=== PATIENT | female | born 1945 | race Caucasian/White ===

== ENCOUNTER 2019-12-04 20:05 | Emergency (ER) | payer OTHER, SELFPAY ==
--- NOTE | ~2019-12-04 | US_ITS ---
EXAMINATION: US pelvic complete w TV DATE: 12/05/2019 00:46 INDICATION: Left adnexal pain/mass TECHNIQUE: Multiple transabdominal and endovaginal sonographic images of the pelvis were obtained. COMPARISON: CT, 12/04/2019 FINDINGS: The uterus measures 9.1 x 4.5 x 3.5 cm. The endometrial complex measures 9 mm. Again seen i s a 10.7 x 7.3 x 6.5 cm mass of the left adnexa. The mass demonstrates internal vascularity. The left ovary is not visualized however no left adnexal abnormality is seen. The right ovary measures 1.7 x 1.4 x 1.8 cm. There is normal vascular flow in the right ovary. There is no free fluid in the pelvis. IMPRESSION: 1. 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 2. Mild thickening of the endometrial stripe which is of unclear significance in an asymptomatic post menopausal female. Reviewed, dictated and finalized at location A. IMPRESSION: 1. 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 2. Mild thickening of the endometrial stripe which is of unclear significance i n an asymptomatic postmenopausal female.
--- NOTE | ~2019-12-04 | CT_ITS ---
EXAMINATION: CT abdomen pelvis w con INDICATION: Left lower quadrant pain TECHNIQUE: Computed tomographic images of the abdomen and pelvis were obtained after the administrati on of 100 cc of Omnipaque 350 intravenous contrast. The dose-length product (DLP) was 817.95 mGy-cm. Automated exposure control and iterative reconstruction technique were employed. COMPARISON: None available FINDINGS: There is a large hiatal hernia with organoaxial volvulus. Much of the stomach is in the tho rax. The heart size is normal. The liver, spleen, pancreas, and adrenal glands are normal. A stone is present in the nondistended gallbladder. Cysts of the kidneys measure up to 2.7 cm on the right. 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 Colonic diverticulosis is present without evidence of diverticulitis. There is a 10 .8 x 7.1 cm mass of the left pelvis which appears to arise from the left adnexa. The mass causes ante rior displacement of the uterus and displaces the rectosigmoid colon to the right. There is a trace a mount of perisplenic ascites. There is severe lumbar spondylosis. IMPRESSION: 1. Left pelvic mass measuring up to 10.8 cm which appears to arise from the left adnexa. Surgical con sultation is recommended. Reviewed, dictated and finalized at location A. IMPRESSION: 1. Left pelvic mass measuring up to 10.8 cm which appears to arise from the lef t adnexa. Surgical consultation is recommended.
[2019-12-04 20:09] VITALS: BP 137/80; PULSE 93; RESP 20; TEMP 37.3; O2SAT 95
[2019-12-04] MEDS: MORPHINE SULFATE 4 MG/ML INJ IV PUSH (21:25)
[2019-12-04 21:48] LABS: Basophils Absolute Auto 0.1 K/mm3 (0.0-0.1); Basophils Percent Auto 0.8 % (0.2-1.2); Eosinophils Absolute Auto 0.3 K/mm3 (0-0.3); Eosinophils Percent Auto 4.6 % (0-4.4); Hemoglobin 13.6 g/dL (12.0-15.0); Immature Granulocyte Absolute 0.02 K/mm3 (0.00-0.031); Immature Granulocyte Percent A 0.3 % (0-0.5); Lymphocytes Absolute Auto 1.61 K/mm3 (0.9-3.2); Lymphocytes Percent Auto 24.9 % (18.3-44.2); Mean Corpuscular HGB Conc 33.2 g/dl (32-36); Mean Corpuscular Hemoglobin 31.4 pg (26-34); Mean Corpuscular Volume 94.7 fl (80-100); Mean Platelet Volume 10.9 fl (7.4-10.4); Monocytes Absolute Auto 0.5 K/mm3 (0.1-0.6); Monocytes Percent Auto 7.4 % (2.6-8.5); Platelet Count Result 236 k/mm3 (150-375); Red Blood Count 4.33 M/mm3 (4.2-5.4); Red Cell Distribution Width 13.1 % (11.5-14.5); White Blood Count 6.5 K/mm3 (4.5-10.0)
[2019-12-04 21:50] LABS: Add Urine Microscopic? NO; Appearance Urine Clear (Clear); Bilirubin Urine Negative (Negative); Blood Urine Negative (Negative); Color Urine Yellow (Yellow); Glucose Urine UA Negative (Negative); Ketones Urine Negative (Negative); Leukocyte Esterase Ur Negative LEU/UL (Negative); Nitrate Urine Negative (Negative); Protein Urine Negative (Negative); Specific Grav Ur 1.016 (1.001-1.035); Urobilinogen Urine Negative mg/dL (<2.0)
[2019-12-04 22:00] LABS: Blood Urea Nitrogen 18 mg/dL (7-17); Calcium 9.1 mg/dL (8.4-10.2); Carbon Dioxide 31 mmol/L (22-30); Chloride 99 mmol/L (98-107); Estimated CRCL calculation 59 ml/min; Estimated Glomerular Filt Rate > 60; Glucose 152 mg/dL (65-105); Potassium 3.7 mmol/L (3.4-5.0); Sodium 137 mmol/L (137-145)
--- NOTE | 2019-12-04 22:39 | ED.ABDPAIN ---
HPI - Abdominal Pain General Chief Complaint: Abdominal Pain Stated Complaint: diverticulitus Time Seen by Provider: 12/04/19 20:07 History of Present Illness HPI narrative: Patient is a 76-year-old female who presents ER with sudden onset left-sided abdominal pain. It is in the lower abdomen. Is constant sharp pain. No radiation. Worse with positional change. Has not found alleviating factors. Has history of diverticulitis and this feels similar. Related Data Allergies Allergy/AdvReac Type Severity Reaction Status Date / Time Sulfa (Sulfonamide Allergy Unknown Verified 01/24/17 14:50 Antibiotics) Review of Systems Review of Systems: All systems reviewed & are unremarkable except as noted in HPI and below Constitutional: Constitutional: Denies chills, Denies fever(s) and Denies weakness Respiratory: Respiratory: Denies cough and Denies dyspnea Gastrointestinal: Gastrointestinal: Reports abdominal pain, Denies diarrhea, Denies nausea and Denies vomiting Genitourinary: Genitourinary: Denies nocturia, Denies dysuria and Denies flank pain PMFSH Past Medical History Medical History (Updated 12/05/19 @ 02:19 by Justice Hylton MD) Diverticulitis Glaucoma Hypertension Hypothyroidism Surgical History Surgical History (Updated 12/04/19 @ 22:43 by Justice Hylton MD) H/O colonoscopy Family History Family History (Updated 01/24/17 @ 21:58 by DOCTOR UNKNOWN) Father Malignant neoplasm of prostate Mother Family history of pancreatic cancer Other Carcinoma of colon Family history of malignant neoplasm of gastrointestinal tract Social History Social History Smoking status: Former smoker Smoking end date: 07/22/97 Alcohol intake: never Exam Narrative: Exam Narrative: GENERAL: Well-appearing, well-nourished, and in no acute distress. HEAD: Normocephalic, atraumatic. ENT: Mucous membranes moist. CHEST: Clear to auscultation. No respiratory distress. HEART: Regular rate and rhythm. Normal peripheral pulses. ABDOMEN: Soft, moderate tenderness in left lower quadrant, nondistended. EXTREMITIES: Normal range of motion. No edema. SKIN: Warm, dry, no rash. NEURO: Alert and oriented x3. PSYCH: Normal mood and affect. Course Reevaluation(s) Reevaluation #1: Patient informed of results. Discussed CT findings with Dr. Sanchez. We will obtain ultrasound to rule out torsion on the left side. We will also obtain a Ca1 25. Date: 12/04/19 Time: 23:30 Reevaluation #2: Patient with repeat episode of severe lower abdominal pain. Re-dosing morphine. Dr. Sanchez recommends transfer to [facility] for going on given severe pelvic pain with adnexal mass and thickened endometrial stripe. I have concerns for intermittent torsion. I have spoken with Dr. Gerber who has accepted the patient for transfer. Patient with first episode low blood pressure after repeat dose of morphine and pain. We will give IV fluid and continue to monitor. Date: 12/05/19 Time: 02:18 Vital Signs Vital signs: Vital Signs Temperature 99.1 F 12/04/19 20:09 Pulse Rate 93 12/04/19 20:09 Respiratory Rate 20 12/04/19 20:09 Blood Pressure 137/80 12/04/19 20:09 Pulse Oximetry 95 12/04/19 20:09 Temperature 99.1 F 12/04/19 20:09 Pulse Rate 72 12/05/19 02:00 Respiratory Rate 22 H 12/05/19 02:00 Blood Pressure 95/74 L 12/05/19 02:00 Pulse Oximetry 97 12/05/19 02:00 MDM - Abdominal Pain Lab Data Result diagrams: 12/04/19 21:35 12/04/19 21:35 Labs: Lab Results 12/04/19 12/04/19 12/04/19 Range/Units 21:35 21:35 21:35 WBC 6.5 (4.5-10.0) K/mm3 RBC 4.33 (4.2-5.4) M/mm3 Hgb 13.6 (12.0-15.0) g/dL Hct 41.0 (37.0-47.0) % MCV 94.7 (80-100) fl MCH 31.4 (26-34) pg MCHC 33.2 (32-36) g/dl RDW 13.1 (11.5-14.5) % Plt Count 236 (150-375) k/mm3 MPV 10.9 H (7.4-10.4) fl Immature Gran % (Auto) 0.3 (0-0.5) % Neut % (Auto) 6
[2019-12-04 23:43] VITALS: BP 139/69; PULSE 72; RESP 18; O2SAT 93
[2019-12-05 02:00] VITALS: BP 95/74; PULSE 72; RESP 22; O2SAT 97
[2019-12-05] MEDS: MORPHINE SULFATE 4 MG/ML INJ IV PUSH (02:21)
[2019-12-05] MEDS: ONDANSETRON INJ 4 MG/2 ML VIAL IV PUSH (02:21)
--- NOTE | 2019-12-05 02:39 | PC.NURSE ---
SPoke with nurse Nia from [facility] she called to ask COVID screening questions at [phone].
--- NOTE | 2019-12-05 02:51 | PC.NURSE ---
Pt placed on 2L NC due to oxygen drop to 79%.
[2019-12-05 04:30] VITALS: BP 115/73; PULSE 68; O2SAT 99
[2019-12-05 05:30] VITALS: BP 127/69; PULSE 65; RESP 16; O2SAT 99
--- NOTE | 2019-12-05 06:09 | PC.NURSE ---
Report called and given to SHAHAZD Cuellar at [phone].
--- NOTE | 2019-12-05 06:14 | PC.NURSE ---
Called [facility] to transport patient to [id number]. ETA [phone]
[2019-12-05 06:56] VITALS: BP 127/70; PULSE 62; RESP 16; O2SAT 100
[2019-12-09 00:45] LABS: CA-125 35 U/mL (<35)
== END 2019-12-05 07:00 | disposition short-term general hospital (02) ==
PROVIDERS: Emergency Provider Emergency Medicine; PCP Family Medicine
DX: R10.2 Pelvic and perineal pain (principal); N83.9 Noninflammatory disorder of ovary, fallopian tube and broad ligament, unspecified; H40.9 Unspecified glaucoma; I10 Essential (primary) hypertension; E03.9 Hypothyroidism, unspecified; Z87.891 Personal history of nicotine dependence
CPT/HCPCS: 36415; 74177; 76830; 76856; 80048; 81003; 85025; 86304; 96374; 96375; 96376; 99285; J2270; J2405; Q9967

== ENCOUNTER 2020-03-03 17:31 | Outpatient (CLI) | payer OTHER, SELFPAY ==
--- NOTE | ~2020-03-03 | XR_ITS ---
EXAMINATION: XR ankle RT min 3V EXAM DATE: 03/03/2020 17:56 INDICATION: Initial encounter following injury, with pain of the right ankle. Fell 4 days ago. TECHNIQUE: Right ankle frontal, lateral and oblique projections obtained and reviewed. There is no p rior study for comparison. FINDINGS: The right ankle mortise appears intact. There are no acute fractures or dislocations iden tified. There is no subcutaneous gas. The soft tissue is unremarkable. There are no radiopaque fo reign bodies. IMPRESSION: 1. Unremarkable right ankle exam. Reviewed, dictated and finalized at location G.
== END 2020-03-03 17:32 | disposition home or self-care (01) ==
LOC: ANHIMG 17:34
PROVIDERS: PCP Family Medicine; Visit Provider Family Medicine
DX: S93.439A Sprain of tibiofibular ligament of unspecified ankle, initial encounter (principal); S93.491A Sprain of other ligament of right ankle, initial encounter
CPT/HCPCS: 73610

== ENCOUNTER 2020-10-03 11:31 | Outpatient (CLI) | payer OTHER, MEDICARE, SELFPAY | END 2020-10-03 11:32 | disposition home or self-care (01) | LOC: ANHCOVIDVC 11:31 | PROVIDERS: PCP Family Medicine | DX: Z23 Encounter for immunization (principal) | CPT/HCPCS: 0001A; 91300 ==

== ENCOUNTER 2020-10-24 11:30 | Outpatient (CLI) | payer OTHER, MEDICARE, SELFPAY | END 2020-10-24 11:31 | disposition home or self-care (01) | LOC: ANHCOVIDVC 11:30 | PROVIDERS: PCP Family Medicine | DX: Z23 Encounter for immunization (principal) | CPT/HCPCS: 0002A; 91300 ==

== ENCOUNTER 2020-12-26 15:10 | Outpatient (CLI) | payer OTHER, SELFPAY ==
--- NOTE | ~2020-12-26 | XR_ITS ---
EXAMINATION:XR_CERV2-3V_CR DATE: 12/26/2020 15:40 INDICATION: Mononeuropathy of the bilateral upper limits TECHNIQUE: AP, lateral, lateral swimmers and odontoid views of the cervical spine are provided. COMPARISON: None FINDINGS: 1-2 mm retrolisthesis C4 on C5. Odontoid is intact. Moderate atlantoaxial osteoarthritis.. Vertebral body heights are normal. Moderate disc height loss at C3-C4 and C5-C6, the latter with severe bilater al uncovertebral osteoarthritis. Mild to moderate uncovertebral osteoarthritis at C3-C4 and C4-C5. Mi ld disc height loss at C4-C5. Multilevel moderate cervical facet osteoarthritis. Prevertebral soft ti ssues are normal. Visualized apices of lungs are clear. IMPRESSION: 1. Moderate cervical spondylosis. Reviewed, dictated and finalized at location A.
== END 2020-12-26 15:11 | disposition home or self-care (01) ==
PROVIDERS: PCP Family Medicine; Visit Provider Physician Assistant
DX: G56.93 Unspecified mononeuropathy of bilateral upper limbs (principal); M47.892 Other spondylosis, cervical region
CPT/HCPCS: 72040

== ENCOUNTER 2021-09-29 07:30 | Outpatient (CLI) | payer OTHER, SELFPAY ==
--- NOTE | ~2021-09-29 | XR_ITS ---
EXAMINATION: XR UGIAC w barium swallow DATE: 09/29/2021 08:07 INDICATION: Gastroesophageal reflux disease without esophagitis. TECHNIQUE: The patient drank thick barium, gas-producing crystals, and thin barium. Fluoroscopy of th e esophagus, stomach, and proximal small bowel was performed. Fluoroscopy exposure time was 0.8 minut es. The total number of images was 281. Total dose-area product was 2.526 Gy-cm^2. COMPARISON: CT abdomen and pelvis 12/04/2019 FINDINGS: There is no mass or stricture of the esophagus. Esophageal motility is normal. There is a l arge sliding hiatal hernia with nearly the entire stomach above the diaphragm. There was no gastroeso phageal reflux with provocative maneuvers. The proximal small bowel shows a normal folding pattern. IMPRESSION: 1. Large sliding hiatal hernia. Reviewed, dictated and finalized at location A. TS ATTORNEY
== END 2021-09-29 07:31 | disposition home or self-care (01) ==
PROVIDERS: PCP Internal Medicine; Visit Provider Internal Medicine
DX: K21.9 Gastro-esophageal reflux disease without esophagitis (principal)
CPT/HCPCS: 74246

== ENCOUNTER → 2022-05-02 12:20 | Outpatient (CLI) | payer OTHER, SELFPAY ==
--- NOTE | ~2022-05-02 | DEXA_ITS ---
Bone Density Report Name: MICHELL AVERY Age: 76 Sex: Female Ethnicity: White Date of : 1945 Indication: postmenopausal; screening for osteoporosis; height loss; hysterectomy; Referring Provider: ALPHONSE CAAL Study: Bone densitometry was performed. Exam Date: May 02, 2022 Accession number: [id number] Bone Density: Region BMD T-score Z-score Classification AP Spine (L1-L4) 1.623 5.2 7.6 Normal Femoral Neck (Left) 0.902 0.5 2.5 Normal Total Hip (Left) 1.125 1.5 3.2 Normal Femoral Neck (Right) 0.874 0.2 2.3 Normal Total Hip (Right) 1.112 1.4 3.1 Normal Total Hip Mean 1.119 1.5 3.2 Normal World Health Organization criteria for BMD impression classify patients as: Normal (T-score at or above -1.0), Osteopenia (T-score between -1.0 and -2.5), or Osteoporosis (T-score at or below -2.5). 10-year Fracture Risk: FRAX not reported because: All T-scores for Spine Total, Hip Total, Femoral Neck at or above -1.0 Clinical Information Provided by Patient: Has the following medical conditions: Hysterectomy Patient maximum height was 69 Menopause Age: 50 No regular weight bearing exercise Does not regularly consume dairy products Drinks caffeinated beverages Onset of menses at age 13 Number of children 1 Impression: The patient has normal bone mass. Discussion: LOW RISK OF FRACTURE; BONE DENSITY IS WELL ABOVE THE MINIMUM DESIRABLE LEVEL AND ABOVE AVERAGE FOR AGE AND SEX AT ALL SKELETAL SITES TESTED. This person's bone density is above expected limits for age and sex. This is rarely clinically significant, but should be pursued if there are significant musculoskeletal complaints. The patient should follow a healthful lifestyle (good nutrition with adequate calcium and vitamin D, and appropriate weight-bearing exercise). Follow-Up: Consider repeating this study in 5 years or sooner if there is some new clinical indication. Reported by: ABDULAZIZ on 05/02/2022 12:38:00 PM. Reviewed, dictated and finalized at location AGaudencio GLASS
--- NOTE | ~2022-05-02 | MM_ITS ---
EXAMINATION: MM screening eitan BI w shreyas HISTORY: Screening TECHNIQUE: Craniocaudal and mediolateral oblique 3-D tomosynthesis images were obtained and synthetic 2-D images were generated. CAD analysis was submitted and interpreted. COMPARISON: No prior mammogram is available for comparison at this institution. BREAST PARENCHYMAL COMPOSITION: There are scattered areas of fibroglandular density. FINDINGS: There is no evidence of suspicious mass, calcification, or architectural distortion to sugg est malignancy in either breast. There has been no suspicious interval change. IMPRESSION: 1. No mammographic evidence of malignancy. 2. Recommend routine screening mammography in one year. BI-RADS Category 1: Negative Reviewed, dictated and finalized at location A.
== END ==
PROVIDERS: PCP Internal Medicine; Visit Provider Nurse Practitioner
DX: Z12.31 Encounter for screening mammogram for malignant neoplasm of breast (principal); Z78.0 Asymptomatic menopausal state
CPT/HCPCS: 77063; 77067; 77080

== ENCOUNTER → 2023-04-25 12:41 | Outpatient (CLI) | payer OTHER, SELFPAY ==
--- NOTE | ~2023-04-25 | US_ITS ---
Pelvic ultrasound. Clinical History: Pelvic pain, prior hysterectomy Technique: Realtime transabdominal and transvaginal scanning of the pelvis was performed. Color flow Doppler and Doppler spectral analysis were performed. Findings: The uterus is absent, compatible with hysterectomy. Neither ovary seen. No adnexal mass seen. There is no evidence of free fluid in the cul de sac. Impression: Neither ovary seen. No adnexal mass seen. Status post hysterectomy. Reviewed, dictated and finalized at location . Impression: Neither ovary seen. No adnexal mass seen. Status post hysterectomy.
== END ==
PROVIDERS: PCP Family Medicine Adolescent Medicine; Visit Provider Family Medicine Adolescent Medicine
DX: R10.32 Left lower quadrant pain (principal)
CPT/HCPCS: 76856

== ENCOUNTER → 2023-07-31 12:19 | Outpatient (CLI) | payer OTHER, SELFPAY ==
--- NOTE | ~2023-07-31 | MM_ITS ---
EXAMINATION: MM screening eitan BI w shreyas HISTORY: Screening mammogram, family history of breast cancer in her mother. TECHNIQUE: Craniocaudal and mediolateral oblique 3-D tomosynthesis images were obtained and synthetic 2-D images were generated. CAD analysis was submitted and interpreted. COMPARISON: 05/02/2022 08/06/2017, 191 BREAST PARENCHYMAL COMPOSITION: The breasts are almost entirely fatty. FINDINGS: No suspicious mass, calcification, or architectural distortion are identified in either matt ast to suggest malignancy. There has been no suspicious interval change. IMPRESSION: 1. No mammographic evidence of malignancy. 2. Recommend routine screening mammography in one year. BI-RADS Category 1: Negative Reviewed, dictated and finalized at location A. CHIEF
== END ==
PROVIDERS: PCP Family Medicine Adolescent Medicine; Visit Provider Family Medicine Adolescent Medicine
DX: Z12.31 Encounter for screening mammogram for malignant neoplasm of breast (principal)
CPT/HCPCS: 77063; 77067